=== PATIENT | female | born 1995 | race Caucasian/White ===

== ENCOUNTER 2017-07-30 16:59 | Emergency (ER) | payer OTHER ==
[~2017-07-30] VITALS: Ht 165.1 cm; Wt 46.8 kg
[2017-07-30 17:06] VITALS: TEMP 100.3
[2017-07-30 17:55] LABS: INFLUENZA A POSITIVE; INFLUENZA B NEGATIVE
[2017-07-30] MEDS ORDERED: NUVARING VAG RING VG (18:02)
[2017-07-30] MEDS ORDERED: ZOFRAN ODT4 MG PO (18:28)
[2017-07-30 18:59] VITALS: BP 100/56; PULSE 92
== END 2017-07-30 19:00 | disposition home or self-care (01) ==
LOC: COL.ER 16:59
PROVIDERS: Nurse Practitioner
DX: J10.1 Influenza due to other identified influenza virus with other respiratory manifestations (principal)
CPT/HCPCS: J1885; J2405; J7030